=== PATIENT | female | born 1985 | race Caucasian/White ===

== ENCOUNTER 2021-08-29 09:11 | Emergency (ER) | payer SELFPAY ==
[2021-08-29 09:21] VITALS: BP 123/85; PULSE 73; RESP 18; TEMP 97.9; BMI 29.2
[2021-08-29] MEDS ORDERED: SODIUM CHLORIDE 1,000 ML IV STA (10:32)
[2021-08-29] MEDS ORDERED: ACETAMINOPHEN 1000 MG/100 ML BAG IVPB ONE (10:33)
[2021-08-29] MEDS ORDERED: PHENAZOPYRIDINE HCL 100 MG TABLET (FP) ONE (10:34)
[2021-08-29] MEDS ORDERED: PHENAZOPYRIDINE HCL 100 MG TABLET (FP) PO ONE (10:40)
[2021-08-29] MEDS ORDERED: ACETAMINOPHEN INJECTION 100 ML IVPB ONE (10:59)
[2021-08-29 11:02] LABS: BASO % 0.5 % (0-2.0); EOS % 0.9 % (0-4.5); HEMATOCRIT 37.5 % (32.4-45.2); HEMOGLOBIN 12.9 GM/dL (10.7-15.3); MCH 29.9 pg (25.7-33.7); MCHC 34.3 g/dl (32.0-36.0); MEAN CELL VOLUME 87.1 fl (80-96); MEAN PLT VOLUME 7.2 fl (7.5-11.1); MONO % 6.1 % (3.8-10.2); NEUT % 48.5 % (42.8-82.8); PLATELET COUNT 311 10^3/uL (134-434); RBC 4.31 M/mm3 (3.60-5.2); RDW 12.2 % (11.6-15.6); WHITE BLOOD COUNT 5.4 K/mm3 (4.0-10.0)
[2021-08-29 11:16] LABS: EPI CELLS 15 /uL (0-25.1); HCG,QUALITATIVE URINE Negative; HYALINE CASTS 0 /uL (0-3.1); PH,URINE 5.5 (5.0-8.0); URINE APPEARANCE CLEAR; URINE BACTERIA 212 /uL (0-1359); URINE BILIRUBIN NEGATIVE (NEGATIVE); URINE COLOR YELLOW; URINE GLUCOSE (UA) NEGATIVE (NEGATIVE); URINE KETONE NEGATIVE (NEGATIVE); URINE LEUK ESTERASE TRACE (NEGATIVE); URINE NITRITE NEGATIVE (NEGATIVE); URINE PROTEIN NEGATIVE (NEGATIVE); URINE RBC 2 /uL (0-23.9); URINE UROBILINOGEN 0.2 mg/dL (0.2-1.0); URINE WBC 10 /uL (0-25.8)
[2021-08-29 11:20] LABS: CALCIUM 9.1 mg/dL (8.5-10.1)
[2021-08-29 11:21] LABS: BLOOD UREA NITROGEN 13.6 mg/dL (7-18)
[2021-08-29 11:23] LABS: CREATININE 0.7 mg/dL (0.55-1.3)
[2021-08-29 11:25] LABS: BILIRUBIN,TOTAL 0.5 mg/dL (0.2-1); TOT PROT 7.5 g/dl (6.4-8.2)
[2021-08-29] MEDS ORDERED: KETOROLAC TROMETHAMINE 30 MG/1 ML VIAL IVPUSH ONE (13:07)
[2021-08-29] MEDS ORDERED: KETOROLAC TROMETHAMINE 30 MG/1 ML VIAL ONE (13:19)
== END 2021-08-29 14:39 | disposition home or self-care (01) ==
LOC: JER 09:11
PROC: 3E033NZ Introduction of Analgesics, Hypnotics, Sedatives into Peripheral Vein, Percutaneous Approach (ICD-10-PCS; principal; 2021-08-29)
PROC: 3E0333Z Introduction of Anti-inflammatory into Peripheral Vein, Percutaneous Approach (ICD-10-PCS; 2021-08-29)
PROC: 3E0337Z Introduction of Electrolytic and Water Balance Substance into Peripheral Vein, Percutaneous Approach (ICD-10-PCS; 2021-08-29)
DX: R10.32 Left lower quadrant pain (principal); N83.202 Unspecified ovarian cyst, left side; N39.0 Urinary tract infection, site not specified
CPT/HCPCS: 36415; 74176-TC; 76830-TC; 80053; 81003; 83690; 84703; 85025; 87086; 99285-25

== ENCOUNTER 2022-08-03 18:27 | Emergency (ER) | payer OTHER ==
[2022-08-03 18:36] VITALS: RESP 18; BMI 29.2
[2022-08-03] MEDS ORDERED: KETOROLAC TROMETHAMINE 30 MG/1 ML VIAL IVPUSH ONE (19:16)
[2022-08-03] MEDS ORDERED: SODIUM CHLORIDE 1,000 ML IV STA (19:16)
[2022-08-03] MEDS ORDERED: METOCLOPRAMIDE HCL INJECTION 10 MG/2 ML VIAL IVPUSH ONE (19:17)
[2022-08-03] MEDS ORDERED: METOCLOPRAMIDE HCL INJECTION 10 MG/2 ML VIAL ONE (19:26)
[2022-08-03] MEDS ORDERED: KETOROLAC TROMETHAMINE 30 MG/1 ML VIAL ONE (19:27)
[2022-08-03 19:56] LABS: BASO % 0.5 % (0-2.0); EOS % 1.2 % (0-4.5); HEMATOCRIT 36.7 % (32.4-45.2); HEMOGLOBIN 12.8 GM/dL (10.7-15.3); MCH 29.9 pg (25.7-33.7); MCHC 34.8 g/dl (32.0-36.0); MEAN CELL VOLUME 85.7 fl (80-96); MEAN PLT VOLUME 7.2 fl (7.5-11.1); MONO % 8.1 % (3.8-10.2); NEUT % 41.2 % (42.8-82.8); PLATELET COUNT 350 10^3/uL (134-434); RBC 4.28 M/mm3 (3.60-5.2); RDW 13.2 % (11.6-15.6); WHITE BLOOD COUNT 6.1 K/mm3 (4.0-10.0)
[2022-08-03 20:07] LABS: POTASSIUM 4.1 mmol/L (3.5-5.1)
[2022-08-03 20:08] LABS: CALCIUM 9.5 mg/dL (8.5-10.1)
[2022-08-03 20:09] LABS: BLOOD UREA NITROGEN 12.5 mg/dL (7-18)
[2022-08-03 20:12] LABS: CREATININE 0.8 mg/dL (0.55-1.3)
[2022-08-03 20:14] VITALS: BP 125/60; PULSE 73; TEMP 98.7
== END 2022-08-03 20:28 | disposition home or self-care (01) ==
LOC: JER 18:27
PROC: 3E033GC Introduction of Other Therapeutic Substance into Peripheral Vein, Percutaneous Approach (ICD-10-PCS; principal; 2022-08-03)
PROC: 3E0333Z Introduction of Anti-inflammatory into Peripheral Vein, Percutaneous Approach (ICD-10-PCS; 2022-08-03)
PROC: 3E033GC Introduction of Other Therapeutic Substance into Peripheral Vein, Percutaneous Approach (ICD-10-PCS; 2022-08-03)
PROC: 3E0337Z Introduction of Electrolytic and Water Balance Substance into Peripheral Vein, Percutaneous Approach (ICD-10-PCS; 2022-08-03)
DX: R51.9 Headache, unspecified (principal); H53.8 Other visual disturbances; R11.2 Nausea with vomiting, unspecified; G43.919 Migraine, unspecified, intractable, without status migrainosus
CPT/HCPCS: 36415; 80048; 84703; 85025; 99284-25

== ENCOUNTER 2023-05-18 19:27 | Emergency (ER) | payer OTHER ==
[2023-05-18 19:43] VITALS: BP 130/62; PULSE 79; RESP 20; TEMP 99; BMI 27.3
[2023-05-18] MEDS ORDERED: NAPROXEN 500 MG TABLET ONE (21:00)
[2023-05-18] MEDS: NAPROXEN 500 MG TABLET PO ONE (21:02)
== END 2023-05-18 21:33 | disposition home or self-care (01) ==
LOC: FER 19:27
DX: M26.622 Arthralgia of left temporomandibular joint (principal); H92.02 Otalgia, left ear
CPT/HCPCS: 99283-25

== ENCOUNTER 2023-12-21 18:20 | Emergency (ER) | payer OTHER ==
[2023-12-21 18:32] VITALS: BP 126/94; PULSE 82; TEMP 98.6; BMI 31.8
[2023-12-21 18:48] VITALS: RESP 18
[2023-12-21] MEDS ORDERED: ACETAMINOPHEN 325 MG TABLET (FP) ONE (18:50)
[2023-12-21] MEDS: ACETAMINOPHEN 325 MG TABLET (FP) PO ONE (18:51)
== END 2023-12-21 19:08 | disposition home or self-care (01) ==
LOC: FER 18:20
DX: R05.9 Cough, unspecified (principal); M54.9 Dorsalgia, unspecified; R51.9 Headache, unspecified
CPT/HCPCS: 99283-25